=== PATIENT | male | born 1995 | race Caucasian/White ===

== ENCOUNTER 2018-03-26 04:56 | Emergency (ER) | payer MEDICAID, SELFPAY ==
[2018-03-26 04:59] VITALS: BP 150/71; PULSE 104; RESP 18; TEMP 36.7; O2SAT 98
--- NOTE | 2018-03-26 05:15 | DI.RAD_ITS ---
SYMPTOMS/DIAGNOSIS: TRAUMA, TWISTING INJURY FALLING DOWN STAIRS RIGHT KNEE: No fracture or joint effusion is seen. The joint spaces are well maintained. IMPRESSION: Negative right knee.
--- NOTE | 2018-03-26 05:16 | W.ED.GENAD ---
Discharge Plan Disposition Patient Disposition: HOME Condition: Good Discharge Details Chief Complaint: Orthopedic Clinical Impression: Injury of knee, right Primary Care Provider: Sindhu Hebert ED Provider: Hemanth Bell [place] Meds and New Rx's Prescriptions: New ibuprofen 600 mg tablet 600 mg PO QID PRN (Reason: pain) Qty: 20 RF: 0 Discharge Instructions Instructions: Knee Sprain (ED), Knee Immobilizer (ED) Additional Instructions: X-rays are negative for bony injury. Your ligaments appear to be intact on exam but you have a large effusion on the knee. You may have cartilage injury. There may be ligament injury still possible. Wear the knee immobilizer until follow-up with orthopedics. Weight-bear as tolerated. Ice to help with pain. Ibuprofen to help with pain. Return to ED if numbness, weakness, worsening pain. Stand Alone Forms: Work Release Referrals: [facility] [Provider Group] Medical Decision Making Patient with right knee injury that occurred last night. Difficulty ambulating today. Fairly significant right knee effusion present. He does have good range of motion but with pain both active and passive. Ligaments appear to be intact. Anterior and posterior drawer test negative. Neurovascularly intact distally. Patient given Motrin for pain. X-ray of right knee obtained and negative for bony injury. Patient placed in knee immobilizer and made weightbearing as tolerated. He declines crutches. Continue ibuprofen for pain, ice for swelling, referral to orthopedics in 1 week for reevaluation. Work note for limited use of right lower extremity. Imaging Data Radiologic Study: Imaging: X-Ray Radiologist's impression: Patient Name: Young Merino #: [id number]: ER Ordering Provider: : PRE ER Primary Care Provider: Sindhu Hebert NPDate of Exam: 03/26/18ex: M : 1995Age: 22 Exam(s) EXAM: XR Right Knee, 3 Views EXAM DATE/TIME: 03/26/2018 5:31 AM CLINICAL HISTORY: 22 years old, male; Signs and symptoms; Other: Trauma; Additional info: Patient states twisting injury while going up stairs. Pain is all around the knee and radiating down the leg some. He also is having difficulty bending his knee. TECHNIQUE: XR Right knee 3 views. COMPARISON: No relevant prior studies available. FINDINGS: Bones/joints: No fracture or dislocation. Joint spaces unremarkable. Alignment anatomic. Soft tissues: Unremarkable. No foreign body. IMPRESSION: Unremarkable examination right knee Dictated and Authenticated by: Lasha Maria MD. Ordering:MARIXA MILLER MD HPI General Mode of arrival: ambulatory. Date/Time Provider Initiated Documentation: 03/26/18 05:10. Limitations to Documentation: no limitations. Information obtained by: patient. HPI Narrative: Patient here with right knee pain status post slip and twisting last night. Tried to go to work this morning but is having difficulty ambulating. He denies actually striking the knee. Slipped and twisted his knee. Denies injury elsewhere. Pain mostly in the knee somewhat radiating down the back of the calf. Related Data Home Medications Medication Instructions Recorded Confirmed ibuprofen 600 mg PO QID PRN #20 tab 03/26/18 Previous Rx's Medication Instructions Recorded ibuprofen 600 mg PO QID PRN #20 tab 03/26/18 Allergies Allergy/AdvReac Type Severity Reaction Status Date / Time No Known Drug Allergies Allergy Unverified 03/26/18 05:04 General Stated Complaint: Orthopedic TONEY: 4 Review of Systems Constitutional Denies weakness Musculoskeletal Reports arthralgias, Reports joint swelling, Denies numbness and Denies tingling Integumentary/Breasts Denies wounds Neurologic Denies focal weakness, Denies numbness, Denies tingling, Denies paresthesias and Denies weakness [facility] Learning disability Speech impediment Tobacco use disorder Family History Grandfather Essential hypertension Myocardial infarction Mother Substance abuse COPD (chronic obstructive pulmonary disease) Father Substance abuse Sister No problems noted. Sister No problems noted. Brother No problems noted. Family History Grandfather Essential hypertension Myocardial infarction Mother Substance abuse COPD (chronic obstructive pulmonary disease) Father Substance abuse Sister No problems noted. Sister No problems noted. Brother No problems noted. Medical History Learning disability Speech impediment Tobacco use disorder Social History Smoking/Tobacco Use Status: Current every day Social History Smoking/Tobacco Use Status: Current every day Exam Const General: cooperative and comfortable Orientation: alert and oriented x3 Skin General skin exam: no ecchymosis and no erythema Trauma: no lacerations or abrasions Neuro General: alert, oriented x3, no focal motor deficits and CN's II-XI intact bilaterally Sensory Exam: no sensory deficits noted Extrem General: normal exam except as noted Right lower extremity: knee (NVI distally) Details: tenderness, swelling (knee effusion), abnormal ROM (able to fully extend and able to get to 90 flexion but with pain) Details: pain with active ROM during and pain with passive ROM during; able to extend lower leg actively and knee ligament exam normal; no unusual warmth Course Vital Signs Temperature 98.1 F 03/26/18 04:59 Pulse 104 H 03/26/18 04:59 Respiratory Rate 18 03/26/18 04:59 Blood Pressure 150/71 H 03/26/18 04:59 Pulse Oximetry 98 03/26/18 04:59 Temperature 98.1 F 03/26/18 04:59 Temperature Source Skin 03/26/18 04:59 Pulse 104 H 03/26/18 04:59 Respiratory Rate 18 03/26/18 04:59 Respiratory Effort Non-Labored 03/26/18 05:02 Blood Pressure 150/71 H 03/26/18 04:59 Blood Pressure Position Sitting 03/26/18 04:59 Pulse Oximetry 98 03/26/18 04:59 Oxygen Delivery Method Room Air 03/26/18 04:59 Oxygen Flow Rate 0 03/26/18 04:59 Pain Level 6 03/26/18 04:59
[2018-03-26] MEDS: Ibuprofen 600 MG TAB PO (05:19)
--- NOTE | 2018-03-26 05:24 | ED.GENADUL_ITS ---
Discharge Plan Disposition Patient Disposition: HOME Condition: Good Discharge Details Chief Complaint: Orthopedic Clinical Impression: Injury of knee, right Primary Care Provider: Sindhu Hebert ED Provider: Hemanth Bell [place] Meds and New Rx's Prescriptions: New ibuprofen 600 mg tablet 600 mg PO QID PRN (Reason: pain) Qty: 20 RF: 0 Discharge Instructions Instructions: Knee Sprain (ED), Knee Immobilizer (ED) Additional Instructions: X-rays are negative for bony injury. Your ligaments appear to be intact on exam but you have a large effusion on the knee. You may have cartilage injury. There may be ligament injury still possible. Wear the knee immobilizer until follow-up with orthopedics. Weight-bear as tolerated. Ice to help with pain. Ibuprofen to help with pain. Return to ED if numbness, weakness, worsening pain. Stand Alone Forms: Work Release Referrals: [facility] [Provider Group] Medical Decision Making Patient with right knee injury that occurred last night. Difficulty ambulating today. Fairly significant right knee effusion present. He does have good range of motion but with pain both active and passive. Ligaments appear to be intact. Anterior and posterior drawer test negative. Neurovascularly intact distally. Patient given Motrin for pain. X-ray of right knee obtained and negative for bony injury. Patient placed in knee immobilizer and made weightbearing as tolerated. He declines crutches. Continue ibuprofen for pain , ice for swelling, referral to orthopedics in 1 week for reevaluation. Work note for limited use of right lower extremity. Imaging Data Radiologic Study: Imaging: X-Ray Radiologist's impression: Patient Name: Young Merino #: [id number]: ER Ordering Provider: : PRE ER Primary Care Provider: Sindhu Hebert NPDate of Exam: 03/26/18ex: M : 1995Age: 22 Exam(s) EXAM: XR Right Knee, 3 Views EXAM DATE/TIME: 03/26/2018 5:31 AM CLINICAL HISTORY: 22 years old, male; Signs and symptoms; Other: Trauma; Additional info: Patient states twisting injury while going up stairs. Pain is all around the knee and radiating down the leg some. He also is having difficulty bending his knee. TECHNIQUE: XR Right knee 3 views. COMPARISON: No relevant prior studies available. FINDINGS: Bones/joints: No fracture or dislocation. Joint spaces unremarkable. Alignment anatomic. Soft tissues: Unremarkable. No foreign body. IMPRESSION: Unremarkable examination right knee Dictated and Authenticated by: Lasha Maria MD. Ordering:MARIXA MILLER MD HPI General Mode of arrival: ambulatory . Date/Time Provider Initiated Documentation: 03/26/18 05:10 . Limitations to Documentation: no limitations . Information obtained by: patient . HPI Narrative: Patient here with right knee pain status post slip and twisting last night. Tried to go to work this morning but is having difficulty ambulating. He denies actually striking the knee. Slipped and twisted his knee. Denies injury elsewhere. Pain mostly in the knee somewhat radiating down the back of the calf. Related Data Home Medications Medication Instructions Recorded Confirmed ibuprofen 600 mg PO QID PRN #20 tab 03/26/18 Previous Rx's Medication Instructions Recorded ibuprofen 600 mg PO QID PRN #20 tab 03/26/18 Allergies Allergy/AdvReac Type Severity Reaction Status Date / Time No Known Drug Allergies Allergy Unverified 03/26/18 05:04 General Stated Complaint: Orthopedic TONEY: 4 Review of Systems Constitutional Denies weakness Musculoskeletal Reports arthralgias, Reports joint swelling, Denies numbness and Denies tingling Integumentary/Breasts Denies wounds Neurologic Denies focal weakness, Denies numbness, Denies tingling, Denies paresthesias and Denies weakness COUNTS INCLUDE 234 BEDS AT THE [facility] Learning disability Speech impediment Tobacco use disorder Family History Grandfather Essential hypertension Myocardial infarction Mother Substance abuse COPD (chronic obstructive pulmonary disease) Father Substance abuse Sister No problems noted. Sister No problems noted. Brother No problems noted. Family History Grandfather Essential hypertension Myocardial infarction Mother Substance abuse COPD (chronic obstructive pulmonary disease) Father Substance abuse Sister No problems noted. Sister No problems noted. Brother No problems noted. Medical History Learning disability Speech impediment Tobacco use disorder Social History Smoking/Tobacco Use Status: Current every day Social History Smoking/Tobacco Use Status: Current every day Exam Const General: cooperative and comfortable Orientation: alert and oriented x3 Skin General skin exam: no ecchymosis and no erythema Trauma: no lacerations or abrasions Neuro General: alert, oriented x3, no focal motor deficits and CN's II-XI intact bilaterally Sensory Exam: no sensory deficits noted Extrem General: normal exam except as noted Right lower extremity: knee (NVI distally) Details: tenderness, swelling (knee effusion), abnormal ROM (able to fully extend and able to get to 90 flexion but with pain) Details: pain with active ROM during and pain with passive ROM during ; able to extend lower leg actively and knee ligament exam normal; no unusual warmth Course Vital Signs Temperature 98.1 F 03/26/18 04:59 Pulse 104 H 03/26/18 04:59 Respiratory Rate 18 03/26/18 04:59 Blood Pressure 150/71 H 03/26/18 04:59 Pulse Oximetry 98 03/26/18 04:59 Temperature 98.1 F 03/26/18 04:59 Temperature Source Skin 03/26/18 04:59 Pulse 104 H 03/26/18 04:59 Respiratory Rate 18 03/26/18 04:59 Respiratory Effort Non-Labored 03/26/18 05:02 Blood Pressure 150/71 H 03/26/18 04:59 Blood Pressure Position Sitting 03/26/18 04:59 Pulse Oximetry 98 03/26/18 04:59 Oxygen Delivery Method Room Air 03/26/18 04:59 Oxygen Flow Rate 0 03/26/18 04:59 Pain Level 6 03/26/18 04:59
--- NOTE | 2018-03-26 05:42 | DI.VRAD_ITS ---
EXAM: XR Right Knee, 3 Views EXAM DATE/TIME: 03/26/2018 5:31 AM CLINICAL HISTORY: 22 years old, male; Signs and symptoms; Other: Trauma; Additional info: Patient states twisting injury while going up stairs. Pain is all around the knee and radiating down the leg some. He also is having difficulty bending his knee. TECHNIQUE: XR Right knee 3 views. COMPARISON: No relevant prior studies available. FINDINGS: Bones/joints: No fracture or dislocation. Joint spaces unremarkable. Alignment anatomic. Soft tissues: Unremarkable. No foreign body. IMPRESSION: Unremarkable examination right knee Dictated and Authenticated by: Lasha Maria MD. Ordering:MARIXA MILLER MD
== END 2018-03-26 06:03 | disposition home or self-care (01) ==
LOC: ER 06:05
PROVIDERS: Emergency Provider Emergency Medicine
DX: S89.91XA Unspecified injury of right lower leg, initial encounter (principal); M25.461 Effusion, right knee; W00.0XXA Fall on same level due to ice and snow, initial encounter; X50.9XXA Other and unspecified overexertion or strenuous movements or postures, initial encounter
CPT/HCPCS: 29505; 73562; 99283; L1830

== ENCOUNTER 2018-08-18 13:51 | Outpatient (REF) | payer MEDICAID, SELFPAY ==
[2018-08-18 19:55] LABS: Abs Immature Grans 0.02 k/cumm (0.0-0.09); Absolute Basophil Count 0.03 k/cumm (0.0-0.2); Absolute Eosinophil Count 0.06 k/cumm (0.0-0.7); Absolute Lymphocyte Count 2.33 k/cumm (1.2-3.4); Absolute Neutrophil Count 7.35 k/cumm (1.2-6.7); Basophils % 0.3; Eosinophils % 0.6; HCT 49.3 % (40.0-50.0); HGB 16.7 g/dL (13.5-17.5); Immature Grans % 0.2; Lymphocytes % 22.4; Mean Corp. HGB Concentration 33.9 g/dL (32.0-36.0); Mean Corpuscular Hemoglobin 30.5 pg (27.0-33.0); Mean Platelet Volume 10.4 fL (8.0-11.0); Monocytes % 5.8; Neutrophils % 70.7; Platelet Count 246 x1000/uL (130-400); RBC 5.48 m/cumm (4.50-6.00); RBC Distribution Width 14.1 % (11.8-14.1); White Blood Cell Count 10.39 k/cumm (4.4-10.8)
[2018-08-18 20:18] LABS: ALT 19 U/L (12-78); AST 18 U/L (15-37); Albumin 4.4 g/dL (3.4-5.0); Alkaline Phosphatase 75 U/L (46-116); BUN 13 mg/dL (7-18); Bilirubin, Total 1.4 mg/dL (0.2-1.0); CREATININE 0.99 mg/dL (0.70-1.30); Calcium 9.8 mg/dL (8.5-10.1); Chloride 101 mmol/L (98-107); Glucose 91 mg/dL (70-100); Potassium 3.8 mmol/L (3.5-5.1); Sodium 140 mmol/L (136-145); Total Protein 7.8 g/dL (6.4-8.2)
== END 2018-08-18 14:11 ==
LOC: NCHCN 13:51
PROVIDERS: PCP Nurse Practitioner Family; Visit Provider Nurse Practitioner Family
DX: F41.8 Other specified anxiety disorders (principal); F10.10 Alcohol abuse, uncomplicated; M25.569 Pain in unspecified knee
CPT/HCPCS: 80053; 85025

== ENCOUNTER 2018-10-02 16:42 | Outpatient (REF) | payer MEDICAID, SELFPAY | END 2018-10-02 17:02 | LOC: NCHCN 16:42 | PROVIDERS: PCP Nurse Practitioner Family; Visit Provider Nurse Practitioner Family | DX: S91.301A Unspecified open wound, right foot, initial encounter (principal) | CPT/HCPCS: 87070; 87205 ==

== ENCOUNTER 2019-10-08 07:34 | Emergency (ER) | payer MEDICAID, SELFPAY ==
[2019-10-08 07:40] VITALS: BP 124/81; PULSE 87; RESP 15; TEMP 36; O2SAT 99
--- NOTE | 2019-10-08 08:19 | W.ED.GENAD ---
Discharge Plan Disposition Patient Disposition: HOME Condition: Stable Discharge Details Chief Complaint: Nk/Back Pain Clinical Impression: Back muscle spasm Primary Care Provider: Dante Teixeira ED Provider: Yeninfer Raines Home Meds and New Rx's Prescriptions: New cyclobenzaprine 10 mg tablet 10 mg PO TID PRNQty: 7 RF: 0 Continued ibuprofen 600 mg tablet 600 mg PO QID PRN (Reason: pain) Qty: 20 RF: 0 Discharge Instructions Instructions: Muscle Spasm (ED) Additional Instructions: Drink plenty of fluids. Rest activities as tolerated. Avoid stretching or massage for the next few days. Use ibuprofen as discussed with food every 6-8 hours for inflammation. Consider ice or heat to the area as discussed. Use muscle relaxant as prescribed. Do not drive, drink alcohol or use any other sedating medications while taking this medication as this will cause drowsiness. Please use with caution. Return for any worsening, concerns or alarming symptoms sooner if needed. Follow-up with primary care doctor not improving in 1 week. Medical Decision Making This is a 23-year-old patient presenting for complaints after sleeping on his friend's floor after drinking. Patient awoke with discomfort in his back. Denies any injury or trauma. Denies any falls. Patient reports history of back spasm in the past this feels similar. Pain described worse with range of motion of the back, deep breathing. Some relief of pain with massage of the area. Patient denies any radicular symptoms. Denies any paresthesia. No lower extremity complaints. Patient describes back pain in the left subscapular area. No chest pain associated. No difficulty breathing shortness of breath or wheezing. Denies any ill feeling. Vital signs reviewed and are normal. Patient reports pain is well reproducible with range of motion. Physical exam is benign. Likely etiology muscle spasm after night of drinking and sleeping on a hard floor. Patient has no palpable bony pain, is well-appearing. Respiratory effort is easy. Suspect muscle spasm. Patient agrees with plan of care to hydrate, use anti-inflammatory as well as muscle relaxant if needed for severe pain. Patient agrees this plan of care. Patient has taken and tolerated Flexeril in the past for muscle spasm. No evidence of emergent cardiothoracic process. The patient was stable and requested discharge. Prior to discharge, my usual and customary return precautions were reviewed with the patient - this included follow-up instructions and reasons to return to the Emergency Department if conditions worsens, does not improve as expected, or other new concerns arise. HPI General Date/Time Provider Initiated Documentation: 10/08/19 08:06. HPI Narrative: This is a 23-year-old gentleman presenting the emergency room for complaints of back strain and spasm. Patient reports back pain beneath his left posterior shoulder. Patient reports pain began after sleeping at a friend's house, they were drinking alcohol the night before yet denies any fall, injury or trauma however patient slipped on the floor and awoke with discomfort in his back. Patient reports pain with movement, left arm movement, rotation of his trunk as well as deep breathing. Patient denies any difficulty breathing or shortness of breath or wheezing. Patient denies any fevers or chills. No ill feeling whatsoever. Denies headache or dizziness. Patient denies any abdominal pain, nausea, vomiting. Eating and drinking without difficulty. No lower extremity complaints. Patient does mention a previous right knee ACL injury which he never had surgery for which still causes some intermittent pain however he denies any new lower extremity complaints. Denies paresthesia. Urinating without difficulty. Denies rash. Denies bruising. Denies falls. History of back spasm in the past Related Data Home Medications Medication Instructions Recorded Confirmed ibuprofen 600 mg PO QID PRN #20 tab 03/26/18 10/08/19 cyclobenzaprine 10 mg PO TID PRN #7 tab 10/08/19 Previous Rx's Medication Instructions Recorded ibuprofen 600 mg PO QID PRN #20 tab 03/26/18 cyclobenzaprine 10 mg PO TID PRN #7 tab 10/08/19 Allergies Allergy/AdvReac Type Severity Reaction Status Date / Time No Known Drug Allergies Allergy Unverified 10/08/19 07:44 General Stated Complaint: Nk/Back Pain TONEY: 4 Review of Systems All systems reviewed & are unremarkable except as noted in HPI and below [facility] Medical History Learning disability Speech impediment Tobacco use disorder Family History Grandfather Essential hypertension Myocardial infarction Mother Substance abuse Tobacco use disorder Daily marijuana COPD (chronic obstructive pulmonary disease) Father Substance abuse EtOH Sister No problems noted. Sister No problems noted. Brother No problems noted. Social History Smoking/Tobacco Use Status: Current every day Alcohol Intake: current Alcohol Intake frequency: a few times a week Drug use: Daily Substance use type: marijuana Do you feel safe at home: Yes Do you feel safe in your relationship?: Yes Exam Narrative Exam Narrative: CONST: Healthy appearing patient, in no acute distress. Well hydrated. Alert and oriented. HENMT: Head nomocephalic, normal to inspection. Atraumatic. Hearing grossly normal. EYES: General normal appearance. Alignment normal. Eyelids normal. Conjunctiva normal. NECK: Normal visual inspection. FROM. Trachea midline. No Midline tenderness. CHEST: Normal insepection of the chest. RESP: Normal respiratory effort. Speaking full sentences. No cough. No audible wheezing. No retractions. Breath sounds clear, full and equal bilaterally. Single isolated wheeze noted in the posterior upper lung on the left. No increase in respiratory effort. No retractions. CARDIO: No JVD. Regular rate and rhythm. No murmur. MUSCULOSKELETAL: Back: No midline tenderness to the cervical, thoracic or lumbar spine. No evidence of trauma or bruising. Mild relief of pain with palpation of the area of discomfort described which is just inferior to the shoulder blade on the left. No CVA tenderness noted bilaterally. Normal Gait. FROM of all extremities. Strength intact in all extremities. No focal weakness. SKIN: Normal. Dry. No rashes. NEURO: Alert and awake. Speech clear. PSYCH: Normal affect. Cooperative. Course Vital Signs Vital signs: Vital Signs Temperature 36.0 C L 10/08/19 07:40 Pulse 87 10/08/19 07:40 Respiratory Rate 15 10/08/19 07:40 Blood Pressure 124/81 10/08/19 07:40 Pulse Oximetry 99 10/08/19 07:40 Temperature 36.0 C L 10/08/19 07:40 Temperature Source Temporal Artery Scan 10/08/19 07:40 Pulse 87 10/08/19 07:40 Respiratory Rate 15 10/08/19 07:40 Respiratory Effort Non-Labored 10/08/19 07:42 Blood Pressure 124/81 10/08/19 07:40 Blood Pressure Position Sitting 10/08/19 07:40 Pulse Oximetry 99 10/08/19 07:40 Oxygen Delivery Method Room Air 10/08/19 07:40 Oxygen Flow Rate 0 10/08/19 07:40 Pain Level 4 10/08/19 07:44
== END 2019-10-08 08:22 | disposition home or self-care (01) ==
PROVIDERS: Emergency Provider Physician Assistant; PCP Nurse Practitioner Family
DX: M62.830 Muscle spasm of back (principal)
CPT/HCPCS: 99283

== ENCOUNTER 2020-11-08 03:02 | Emergency (ER) | payer MEDICAID, SELFPAY ==
[2020-11-08 03:07] VITALS: BP 147/110; PULSE 72; RESP 20; TEMP 36.4; O2SAT 99
--- NOTE | 2020-11-08 03:15 | W.ED.GENAD ---
Discharge Plan Disposition Patient Disposition: HOME Condition: Good Discharge Details Clinical Impression: Encounter for medical assessment Primary Care Provider: Dante Teixeira ED Provider: Rinku Lan Home Meds and New Rx's Prescriptions: Continued ibuprofen 600 mg tablet 600 mg PO QID PRN (Reason: pain) Qty: 20 RF: 0 cyclobenzaprine 10 mg tablet 10 mg PO TID PRNQty: 7 RF: 0 Discharge Instructions Additional Instructions: Please use your outpatient resources as needed. If you notice any worsening of your symptoms, or any new symptoms such as vomiting, diarrhea, fever, chills, shortness of breath, chest pain, numbness, weakness, or fainting , please return immediately to the emergency department for reevaluation. Please follow up with your primary care provider as soon as possible for reassessment and reevaluation. As always, it was a pleasure participating in your medical care today. Referrals: Dante Teixeira, REPEAT CHIEF [Primary Care Provider] - Medical Decision Making This is a 24-year-old male with a past medical history of learning disability, speech impediment, who presents today for medical evaluation. Patient is normally under a curfew, unfortunately he states that he was in another person's vehicle trying to do his laundry this evening which was a violation of his curfew, police picked up the person that he was in the vehicle with, and when the police were there the patient made passive suicidal statements stating that he was worried he would not get to work on time which is at 5 in the morning. He was worried he would lose his job. Mental health then requested that he come to the ER for a second opinion and medical evaluation for stability. Currently the patient states that he denies any homicidal or suicidal ideations. He states that he was only worried that he would not get to his job this morning and that gave him great concern. He denies any IV or illicit drug use today or yesterday, he does state that he smoked crack cocaine last week, but denies any crack cocaine, alcohol or other drugs tonight or yesterday. Patient regrets his previous statements. No other complaints at this time. Currently he denies auditory or visual hallucinations. He denies homicidal or suicidal ideations. He states that he has not taken any drugs or drink any alcohol today. The patient is able to speak clearly. There is no demonstration of any slurring of speech. There is evidence of clear decision making capacity. Patient is able to ambulate well without any difficulty. There are no signs of ataxia or stumbling motions. Patient is hemodynamically stable, and shows no signs of medical instability. Patient is clinically and medically cleared at this time. No indication for further laboratory work-up or imaging. Discussed the case with mental health, may evaluated the patient over the phone themselves as well second time. They agree on the patient's stability, and he has been cleared for discharge. I have extensively reviewed the treatment plan and discharge instructions with the patient. I have addressed all patient concerns at this time. The patient was made aware of what symptoms to monitor for that would warrant a return to the emergency department. Discussed the plan with the patient, they demonstrate verbal understanding and agreement with our assessment and plan at this time. The documentation in this chart was dictated using [employer] dictation software. Please excuse any dictation errors. HPI General Date/Time Provider Initiated Documentation: 11/08/20 03:04. HPI Narrative: This is a 24-year-old male with a past medical history of learning disability, speech impediment, who presents today for medical evaluation. Patient is normally under a curfew, unfortunately he states that he was in another person's vehicle trying to do his laundry this evening which was a violation of his curfew, police picked up the person that he was in the vehicle with, and when the police were there the patient made passive suicidal statements stating that he was worried he would not get to work on time which is at 5 in the morning. He was worried he would lose his job. Mental health then requested that he come to the ER for a second opinion and medical evaluation for stability. Currently the patient states that he denies any homicidal or suicidal ideations. He states that he was only worried that he would not get to his job this morning and that gave him great concern. He denies any IV or illicit drug use today or yesterday, he does state that he smoked crack cocaine last week, but denies any crack cocaine, alcohol or other drugs tonight or yesterday. Patient regrets his previous statements. No other complaints at this time. Related Data Home Medications Medication Instructions Recorded Confirmed ibuprofen 600 mg PO QID PRN #20 tab 12/05/18 07/20/21 cyclobenzaprine 10 mg PO TID PRN #7 tab 10/08/19 11/08/20 Previous Rx's Medication Instructions Recorded ibuprofen 600 mg PO QID PRN #20 tab 03/26/18 cyclobenzaprine 10 mg PO TID PRN #7 tab 10/08/19 Allergies Allergy/AdvReac Type Severity Reaction Status Date / Time No Known Drug Allergies Allergy Unverified 11/08/20 03:12 General Stated Complaint: PsychEval TONEY: 2 Review of Systems All systems reviewed & are unremarkable except as noted in HPI and below PFSH Medical History Learning disability Speech impediment Tobacco use disorder Family History Grandfather Essential hypertension Myocardial infarction Mother Substance abuse Tobacco use disorder Daily marijuana COPD (chronic obstructive pulmonary disease) Father Substance abuse EtOH Sister No problems noted. Sister No problems noted. Brother No problems noted. Social History Smoking/Tobacco Use Status: Current every day Smoking risk assessment performed?: Yes Alcohol Intake: current Alcohol Intake frequency: a few times a week Drug use: Daily Substance use type: marijuana and crack/cocaine Do you feel safe at home: Yes Do you feel safe in your relationship?: Yes Exam Narrative Exam Narrative: 1.Const: Well-nourished, Well-developed, appearing stated age 2.Eyes: PERRL, no conjunctival injection, and symmetrical lids. 3.ENT: Atraumatic external nose and ears. Moist MM. Neck: Symmetric, trachea midline, No thyromegaly. 4.CVS: +S1/S2, No murmurs or gallops. Peripheral pulses 2+ and equal in all extremities. Brisk capillary refill in all extremities. 5.RESP: Unlabored respiratory effort. Clear to auscultation bilaterally. No wheezes rales or rhonchi 6.GI: Soft, Nontender/Nondistended, No hepatosplenomegaly. No guarding or rebound. 7.MSK: Normocephalic/Atraumatic, Extremities w/o deformity or ttp No cyanosis or clubbing, Normal movement of all extremities 8.Skin: Warm, Dry. No rashes or lesions. 9.Neuro: health information director II-XII grossly intact. Sensation grossly intact, no focal neurologic deficits. 10.Psych: (AAO) x3. Appropriate mood and affect Course Vital Signs Vital signs: Vital Signs Temperature 36.4 C L 11/08/20 03:07 Pulse 72 11/08/20 03:07 Respiratory Rate 20 11/08/20 03:07 Blood Pressure 147/110 H 11/08/20 03:07 Pulse Oximetry 99 11/08/20 03:07 Temperature 36.4 C L 11/08/20 03:07 Temperature Source Temporal Artery Scan 11/08/20 03:07 Pulse 72 11/08/20 03:07 Respiratory Rate 20 11/08/20 03:07 Respiratory Effort Non-Labored 11/08/20 03:12 Blood Pressure 147/110 H 11/08/20 03:07 Blood Pressure Position Sitting 11/08/20 03:07 Pulse Oximetry 99 11/08/20 03:07 Oxygen Delivery Method Room Air 11/08/20 03:07 Oxygen Flow Rate 0 11/08/20 03:07 Pain Level 0 11/08/20 03:07
== END 2020-11-08 03:27 | disposition home or self-care (01) ==
LOC: ER 03:30
PROVIDERS: Emergency Provider Student in an Organized Health Care Education/Training Program; PCP Nurse Practitioner Family
DX: Z04.89 Encounter for examination and observation for other specified reasons (principal)
CPT/HCPCS: 99285; 99283

== ENCOUNTER 2024-12-24 21:54 | Emergency (ER) | payer MEDICAID, SELFPAY ==
[2024-12-24 21:52] VITALS: BP 145/80; PULSE 71; RESP 18; TEMP 36.8; O2SAT 96
--- NOTE | 2024-12-24 22:10 | ED.GENADUL_ITS ---
Discharge Plan Disposition Patient Disposition: Eloped Discharge Details Clinical Impression: Encounter for medical assessment Primary Care Provider: Dante Koenig ED Provider: Rinku Lan Home Meds and New Rx's Prescriptions: No Action ibuprofen 600 mg tablet 600 mg PO QID PRN (Reason: pain) Qty: 20 0RF cyclobenzaprine 10 mg tablet 10 mg PO TID PRNQty: 7 0RF HPI General Date/Time Provider Initiated Documentation: 12/24/24 22:07 . Related Data Home Medications ?Medication ?Instructions ?Recorded ?Confirmed ibuprofen 600 mg tablet 600 mg PO QID PRN pain #20 t abs 03/26/18 12/24/24 Held on 12/24/24. Instructions: Pt Stopped/Never Started cyclobenzaprine 10 mg tablet 10 mg PO TID PRN #7 tabs 10/08/19 12/24/24 Held on 12/24/24. Instructions: Pt Stopped/Never Started Previous Rx's ?Medication ?Instructions ?Recorded ibuprofen 600 mg tablet 600 mg PO QID PRN pain #20 t abs 03/26/18 Held on 12/24/24. Instructions: Pt Stopped/Never Started cyclobenzaprine 10 mg tablet 10 mg PO TID PRN #7 tabs 10/08/19 Held on 12/24/24. Instructions: Pt Stopped/Never Started Allergies Allergy/AdvReac Type Severity Reaction Status Date / Time No Known Drug Allergies Allergy Unverified 11/08/20 03:12 General Stated Complaint: Dizzy/Sync TONEY: 4 Course Vital Signs Vital signs: Vital Signs Temperature 36.8 C 12/24/24 21:52 Pulse 71 12/24/24 21:52 Respiratory Rate 18 12/24/24 21:52 Blood Pressure 145/80 H 12/24/24 21:52 Pulse Oximetry 96 12/24/24 21:52 Temperature 36.8 C 12/24/24 21:52 Pulse 71 12/24/24 21:52 Respiratory Rate 18 12/24/24 21:52 Blood Pressure 145/80 H 12/24/24 21:52 Pulse Oximetry 96 12/24/24 21:52 Oxygen Delivery Method Room Air 12/24/24 21:52 Oxygen Flow Rate 0 12/24/24 21:52 Pain Level 0 12/24/24 21:52 Medical Decision Making Patient was brought in by EMS. Patient immediately eloped from the department upon arrival. I did not have an opportunity to see the patient before he eloped. [facility] All Active Problems (Updated 12/24/24 @ 22:12 by Rinku Lan DO) Encounter for medical assessment (Acute) Tobacco use disorder (Acute) Speech impediment (Acute) Marijuana abuse (Acute) Learning disability (Acute) Alcoholism (Acute) Acne vulgaris (Acute) Medical History (Updated 12/24/24 @ 22:12 by Rinku Lan DO) Speech impediment Tobacco use disorder Learning disability Family History Grandfather Essential hypertension Myocardial infarction Mother Substance abuse Tobacco use disorder Daily marijuana COPD (chronic obstructive pulmonary disease) Father Substance abuse EtOH Sister No problems noted. Sister No problems noted. Brother No problems noted. Social History Smoking/Tobacco Use Status: Current every day Smoking risk assessment performed?: Yes Alcohol Intake: current Alcohol Intake frequency: a few times a week Drug use: Daily Substance use type: marijuana and crack/cocaine Do you feel safe at home: Yes Do you feel safe in your relationship?: Yes
--- NOTE | 2024-12-24 22:38 | ED.GENADUL_ITS ---
Discharge Plan Disposition Patient Disposition: Home Condition: Good Discharge Details Clinical Impression: Encounter for medical assessment Primary Care Provider: Unknown,Unknown ED Provider: Rinku Lan Home Meds and New Rx's Prescriptions: No Action ibuprofen 600 mg tablet 600 mg PO QID PRN (Reason: pain) Qty: 20 0RF cyclobenzaprine 10 mg tablet 10 mg PO TID PRNQty: 7 0RF Discharge Instructions Additional Instructions: It would be my recommendations that you avoid cocaine and fentanyl. These are harmful drugs and can cause significant long-term problems. At this time you demonstrate no evidence of significant medical instability requiring further management or diagnostics. If you notice any worsening of your symptoms, or any new symptoms such as vomiting, diarrhea, fever, chills, shortness of breath, chest pain, numbness, weakness, or fainting , please return immediately to the emergency department for reevaluation. Please follow up with your primary care provider as soon as possible for reassessment and reevaluation. As always, it was a pleasure participating in your medical care today. Referrals: Lluvia POLANCO,YIFAN Howell [NURSE PRACTITIONER, Medicine] [facility] General Date/Time Provider Initiated Documentation: 12/24/24 22:07 . HPI Narrative: This is a 29-year-old male with a past medical history of learning disability, speech impediment, chronic cocaine use, who lives under the care and supervision of supportive staff, who presents today for evaluation of medical clearance. Patient today states that he regularly and daily smokes crack, however tonight he took some fentanyl. He went back to his care facility, and per the staff there he was notably difficult to arouse and obtunded for short period of time. He came to without any Narcan. Patient stated that he did not want to go to the ER, but was then brought by EMS for further evaluation. On patient's initial arrival here he eloped,(most likely to go smoke) but then came back later for assessment. Patient has no complaints at this time. He denies any headache, chest pain, shortness of breath, numbness, tingling or weakness. He denies taking any other drugs. He does not want any resources to help quit. Related Data Home Medications ?Medication ?Instructions ?Recorded ?Confirmed ibuprofen 600 mg tablet 600 mg PO QID PRN pain #20 t abs 03/26/18 12/24/24 Held on 12/24/24. Instructions: Pt Stopped/Never Started cyclobenzaprine 10 mg tablet 10 mg PO TID PRN #7 tabs 10/08/19 12/24/24 Held on 12/24/24. Instructions: Pt Stopped/Never Started Previous Rx's ?Medication ?Instructions ?Recorded ibuprofen 600 mg tablet 600 mg PO QID PRN pain #20 t abs 03/26/18 Held on 12/24/24. Instructions: Pt Stopped/Never Started cyclobenzaprine 10 mg tablet 10 mg PO TID PRN #7 tabs 10/08/19 Held on 12/24/24. Instructions: Pt Stopped/Never Started Allergies Allergy/AdvReac Type Severity Reaction Status Date / Time No Known Drug Allergies Allergy Unverified 11/08/20 03:12 General Stated Complaint: Dizzy/Sync TONEY: 4 Exam Narrative Exam Narrative: 1.Const: Well-nourished, Well-developed, appearing stated age 2.Eyes: PERRL, no conjunctival injection, and symmetrical lids. 3.ENT: Atraumatic external nose and ears. Moist MM. Neck: Symmetric, trachea midline, No thyromegaly. 4.CVS: +S1/S2, Peripheral pulses 2+ and equal in all extremities. Brisk capillary refill in all extremities. 5.RESP: Unlabored respiratory effort. Clear to auscultation bilaterally. No wheezes rales or rhonchi 6.GI: Soft, Nontender/Nondistended, No hepatosplenomegaly. No guarding or rebound. 7.MSK: Normocephalic/Atraumatic, Extremities w/o deformity or ttp No cyanosis or clubbing, Normal movement of all extremities 8.Skin: Warm, Dry. No rashes or lesions. 9.Neuro: laboratory technology teacher II-XII grossly intact. Sensation grossly intact, no focal neur ologic deficits. 10.Psych: (AAO) x3. Appropriate mood and affect Course Vital Signs Vital signs: Vital Signs Temperature 36.8 C 12/24/24 21:52 Pulse 71 12/24/24 21:52 Respiratory Rate 18 12/24/24 21:52 Blood Pressure 145/80 H 12/24/24 21:52 Pulse Oximetry 96 12/24/24 21:52 Temperature 36.8 C 12/24/24 21:52 Pulse 71 12/24/24 21:52 Respiratory Rate 18 12/24/24 21:52 Blood Pressure 145/80 H 12/24/24 21:52 Pulse Oximetry 96 12/24/24 21:52 Oxygen Delivery Method Room Air 12/24/24 21:52 Oxygen Flow Rate 0 12/24/24 21:52 Pain Level 0 12/24/24 21:52 Medical Decision Making This is a 29-year-old male with a past medical history of learning disability, speech impediment, chronic cocaine use, who lives under the care and supervision of supportive staff, who presents today for evaluation of medical clearance. Patient today states that he regularly and daily smokes crack, however tonight he took some fentanyl. He went back to his care facility, and per the staff there he was notably difficult to arouse and obtunded for short period of time. He came to without any Narcan. Patient stated that he did not want to go to the ER, but was then brought by EMS for further evaluation. On patient's initial arrival here he eloped,(most likely to go smoke) but then came back later for assessment. Patient has no complaints at this time. He denies any headache, chest pain, shortness of breath, numbness, tingling or weakness. He denies taking any other drugs. He does not want any resources to help quit. Exam demonstrates well-appearing male, no acute distress, vital signs stable, no tachycardia, severe hypertension, hypoxemia or other abnormality. Neurologic assessment is normal with no deficits. Patient is medically stable at this time. He did not receive Narcan, shows no signs of reduced respiratory effort or signs of overdose. Patient is stable for discharge. He has been given a phone will be calling his mother to be picked up. No other complaints at this time. No other modifying factors. [facility] All Active Problems (Updated 12/24/24 @ 22:12 by Rinku Lan DO) Encounter for medical assessment (Acute) Tobacco use disorder (Acute) Speech impediment (Acute) Marijuana abuse (Acute) Learning disability (Acute) Alcoholism (Acute) Acne vulgaris (Acute) Medical History (Updated 12/24/24 @ 22:12 by Rinku Lan DO) Speech impediment Tobacco use disorder Learning disability Family History Grandfather Essential hypertension Myocardial infarction Mother Substance abuse Tobacco use disorder Daily marijuana COPD (chronic obstructive pulmonary disease) Father Substance abuse EtOH Sister No problems noted. Sister No problems noted. Brother No problems noted. Social History Smoking/Tobacco Use Status: Current every day Smoking risk assessment performed?: Yes Alcohol Intake: current Alcohol Intake frequency: a few times a week Drug use: Daily Substance use type: marijuana and crack/cocaine Do you feel safe at home: Yes Do you feel safe in your relationship?: Yes
== END 2024-12-24 22:53 | disposition home or self-care (01) ==
PROVIDERS: Emergency Provider Student in an Organized Health Care Education/Training Program
DX: Z71.1 Person with feared health complaint in whom no diagnosis is made (principal)
CPT/HCPCS: 99281; 99282

== ENCOUNTER 2025-01-15 08:43 | Observation (INO) | payer OTHER, SELFPAY ==
[2025-01-15 08:47] VITALS: BP 126/81; PULSE 79; RESP 14; TEMP 38; O2SAT 98
--- NOTE | 2025-01-15 09:00 | DI.CT_ITS ---
Exam(s) CT FACIAL W EXAM: CT FACIAL W CLINICAL HISTORY: L up lip/cheek swelling/pain concern for abscess. TECHNIQUE: Imaging Protocol: Axial computed tomography images with coronal and sagittal reformatted images were created and reviewed CONTRAST MATERIAL: Intravenous: Omnipaque 350 Contrast volume:100 ml contrast route:IV - COMPARISON: No exams were available for comparison FINDINGS: Facial Bones: No fracture is noted in the facial bones. Sinuses and Mastoids: Unremarkable. Globes, extraocular muscles, optic nerves and retrobulbar fat: Normal. Upper aerodigestive tract: Normal. Mandible and bilateral temporomandibular joints: Periapical lucency noted at the roots of the right 2nd mandibular molar tooth. Soft tissues: Severe left sided facial swelling extending from below the left orbit down through the level of the left mandible. Three small discrete ring- enhancing lesions are seen in the left side of the face consistent with small abscesses. Two measure less than a centimeter in size. The larger measures roughly 1 x 1 x 2 cm. IMPRESSION: Severe right-sided facial swelling with 3 small abscess collections. No evidence of osteomyelitis. RADIATION DOSE DELIVERED: 167.01mGy.cm Total DLP DATA REPOSITORY: All CT scans at this facility are submitted to the National Radiology Data Registry (NRDR) Dose Index Registry (DIR) with the [employer] ([employer]). RADIATION OPTIMIZATION: All CT scans at this facility use at least one of these dose optimization techniques: automated exposure control; mA and/or kV adjustment per patient size (includes targeted exams where dose is matched to clinical indication); or iterative reconstruction.
--- NOTE | 2025-01-15 09:15 | W.ED.GENAD ---
Discharge Plan Disposition Patient Disposition: Admit to [facility] Discharge Details Clinical Impression: Cellulitis of face Primary Care Provider: Unknown,Unknown ED Provider: Maicol Moe Home Meds and New Rx's Prescriptions: No Action ibuprofen 600 mg tablet 600 mg PO QID PRN (Reason: pain) Qty: 20 0RF HPI General Date/Time Provider Initiated Documentation: 01/15/25 08:48. HPI Narrative: MDM/Narrative: 29-year-old male presents for left facial swelling, currently incarcerated and was started on p.o. Bactrim and cephalexin yesterday with worsening symptoms. Sands notable for fever with associated left upper lip and cheek swelling concern for possible facial abscess. Will obtain screening labs including blood cultures, and imaging of the face with CT to rule out abscess. Given outpatient antibiotic failure, will likely recommend admission for this patient for further management. ED course: 10:30 AM Results reviewed, notable for leukocytosis as well as rim-enhancing abscess in the left cheek on CT with other likely subcentimeter abscesses developing. Case discussed with Dr. Ni ENT at [facility] who recommends that patient be admitted for antibiotics and would treat with steroids. States that patient would likely improve or require further ENT evaluation after the weekend as he does not see emergent transfer indication at this time. Will discussed with Dr. Krishna hospitalist to determine if patient is suitable for inpatient admission here or if he will require transfer to ENT capable facility. Patient reated with Solu-Medrol 125 mg IV. 12:36 PM Case discussed with [facility] ENT Dr. Jasmin Chavez, who has reviewed the films and patient's history does not believe that he needs any urgent/emergent ENT procedure as she does not believe these abscesses would be drainable at this time. She recommends a dose of steroids, agrees with IV vancomycin and Unasyn, and to reassess patient for response to therapy. If no improvement she would recommend reimaging within 2 to 3 days. She also has very low concern for possible worsening airway involvement given this is an infection in the superficial cutaneous tissues of the left cheek. Case discussed with Dr. Krishna (hospitalist), is agreeable to plan for admission. Disposition: Admission Clinical impression: Facial cellulitis HPI: 29-year-old male with no significant past medical history, he is currently incarcerated presents for evaluation of left facial pain and swelling. Patient states that he had some minimal swelling of the left upper lip/cheek which he thought was a pimple and attempted to squeeze it 2 days ago, he then began to get swelling, he was started on p.o. Bactrim and Keflex while at detention yesterday. This morning he notes significant worsening of pain and swelling, and was found to be febrile here in the triage. He denies any other new or worsening symptoms. ROS: Negative besides as mentioned above Exam: Gen: A&O NAD HEENT: NCAT, EOMI, not icteric. External ears normal. No rhinorrhea. Moist mucous membranes. There is significant swelling of the left upper lip extending to the left cheek, no palpable lymphadenopathy, no associated gingival swelling or dental tenderness to percussion, floor of mouth is normal, no trismus, tolerating secretions, no stridor Neck: Supple, full range of motion, no observable masses, No meningeal sign. Lungs: No Respiratory distress. CV: RRR, no edema. Abdomen: Soft, nondistended, No rebound tenderness. MSK: No joint swelling, no redness. Skin: No rashes, petechiae, lesions. Normal color per patient. Neuro: Normal Gait, Grossly intact. Psych: Appropriate for situation. Labs: 01/15/25 09:35 Blood Blood Culture - Pending 01/15/25 09:20 Blood Blood Culture - Pending Laboratory Tests Range/Units 01/15/25 09:20 WBC (4.4-10.8) 10^3/uL 11.45 H RBC (4.36-5.78) 10^6/uL 5.27 Hgb (13.5-17.5) g/dL 15.3 Hct (40.0-50.0) % 45.8 MCV (80-95) fL 87 MCH (27.0-33.0) pg 29.0 MCHC (32.0-36.0) % 33.4 RDW (11.8-14.1) % 12.3 Plt Count (130-400) 10^3/uL 174 MPV (8.0-11.0) fL 9.6 Immature Gran % % 0.3 Neutrophils % % 80.6 Lymphocytes % % 11.3 Monocytes % % 6.1 Eosinophils % % 1.0 Basophils % % 0.7 Nucleated RBC % (0.0-0.3) % 0.0 Absolute Neutrophils (1.2-6.7) 10^3/uL 9.23 H Absolute Lymphocytes (1.2-3.4) 10^3/uL 1.29 Absolute Monocytes (0.1-0.8) 10^3/uL 0.70 Absolute Eosinophils (0.0-0.7) 10^3/uL 0.11 Absolute Basophils (0.0-0.2) 10^3/uL 0.08 VBG Lactate (<or=2.0) mmol/L 0.7 Sodium (136-145) mmol/L 140 Potassium (3.5-5.1) mmol/L 3.7 Chloride (98-107) mmol/L 101 Carbon Dioxide (21.0-32.0) mmol/L 31.2 Anion Gap (3-11) mmol/L 7.8 BUN (7-18) mg/dL 11 Creatinine (0.70-1.30) mg/dL 0.8 Est GFR (CKD-EPI 2020) (mL/min/1.73m2) 122.10 Glucose (74-106) mg/dL 103 Calcium (8.5-10.1) mg/dL 9.1 Total Bilirubin (0.2-1.0) mg/dL 1.2 H AST (15-37) U/L 21 ALT (16-63) U/L 20 Alkaline Phosphatase (46-116) U/L 78 Total Protein (6.4-8.2) g/dL 7.5 Albumin (3.4-5.0) g/dL 4.0 Radiology: Exam(s) CT FACIAL W EXAM: CT FACIAL W CLINICAL HISTORY: L up lip/cheek swelling/pain concern for abscess. TECHNIQUE: Imaging Protocol: Axial computed tomography images with coronal and sagittal reformatted images were created and reviewed CONTRAST MATERIAL: Intravenous: Omnipaque 350 Contrast volume:100 ml contrast route:IV - COMPARISON: No exams were available for comparison FINDINGS: Facial Bones: No fracture is noted in the facial bones. Sinuses and Mastoids: Unremarkable. Globes, extraocular muscles, optic nerves and retrobulbar fat: Normal. Upper aerodigestive tract: Normal. Mandible and bilateral temporomandibular joints: Periapical lucency noted at the roots of the right 2nd mandibular molar tooth. Soft tissues: Severe left sided facial swelling extending from below the left orbit down through the level of the left mandible. Three small discrete ring-enhancing lesions are seen in the left side of the face consistent with small abscesses. Two measure less than a centimeter in size. The larger measures roughly 1 x 1 x 2 cm. IMPRESSION: Severe right-sided facial swelling with 3 small abscess collections. No evidence of osteomyelitis. RADIATION DOSE DELIVERED: 167.01mGy.cm Total DLP DATA REPOSITORY: All CT scans at this facility are submitted to the National Radiology Data Registry (NRDR) Dose Index Registry (DIR) with the [employer] (ACR). RADIATION OPTIMIZATION: All CT scans at this facility use at least one of these dose optimization techniques: automated exposure control; mA and/or kV adjustment per patient size (includes targeted exams where dose is matched to clinical indication); or iterative reconstruction. Related Data Home Medications ?Medication ?Instructions ?Recorded ?Confirmed ibuprofen 600 mg tablet 600 mg PO QID PRN pain #20 tabs 03/26/18 01/15/25 Previous Rx's ?Medication ?Instructions ?Recorded ibuprofen 600 mg tablet 600 mg PO QID PRN pain #20 tabs 03/26/18 Allergies Allergy/AdvReac Type Severity Reaction Status Date / Time No Known Drug Allergies Allergy Unknown Other (See Unverified 01/15/25 08:55 Comment) General Stated Complaint: Cellulitis TONEY: 3 Course Vital Signs Vital signs: Vital Signs Temperature 38 C H 01/15/25 08:47 Pulse 79 01/15/25 08:47 Respiratory Rate 14 01/15/25 08:47 Blood Pressure 126/81 01/15/25 08:47 Pulse Oximetry 98 01/15/25 08:47 Temperature 38 C H 01/15/25 08:47 Temperature Source Temporal Artery Scan 01/15/25 08:47 Pulse 79 01/15/25 08:47 Respiratory Rate 14 01/15/25 08:47 Blood Pressure 126/81 01/15/25 08:47 Blood Pressure Position Sitting 01/15/25 08:47 Pulse Oximetry 98 01/15/25 08:47 Oxygen Delivery Method Room Air 01/15/25 08:47 Oxygen Flow Rate 0 01/15/25 08:47 Pain Level 7 01/15/25 08:47 Comment 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 All Active Problems (Updated 01/15/25 @ 12:39 by Maicol Moe MD) Cellulitis of face (Acute) Encounter for medical assessment (Acute) Tobacco use disorder (Acute) Speech impediment (Acute) Marijuana abuse (Acute) Learning disability (Acute) Alcoholism (Acute) Acne vulgaris (Acute) Medical History (Updated 01/15/25 @ 12:39 by Maicol Moe MD) Speech impediment Tobacco use disorder Learning disability Family History Grandfather Essential hypertension Myocardial infarction Mother Substance abuse Tobacco use disorder Daily marijuana COPD (chronic obstructive pulmonary disease) Father Substance abuse EtOH Sister No problems noted. Sister No problems noted. Brother No problems noted. Social History Smoking/Tobacco Use Status: Current every day Smoking risk assessment performed?: Yes Alcohol Intake: current Alcohol Intake frequency: a few times a week Drug use: Daily Substance use type: marijuana and crack/cocaine Housing: other Do you feel safe at home: Yes Do you feel safe in your relationship?: Yes
[2025-01-15 09:34] LABS: Abs Immature Grans 0.04 10^3/uL (0.0-0.06); HCT 45.8 % (40.0-50.0); HGB 15.3 g/dL (13.5-17.5); Immature Grans % 0.3 %; MCH 29.0 pg (27.0-33.0); MCHC 33.4 % (32.0-36.0); MCV 87 fL (80-95); MPV 9.6 fL (8.0-11.0); Platelet Count 174 10^3/uL (130-400); RBC 5.27 10^6/uL (4.36-5.78); RDW 12.3 % (11.8-14.1); RDW-SD 39.7 fL; WBC 11.45 10^3/uL (4.4-10.8)
[2025-01-15] MEDS: Normal Saline 1,000 ML 1000 ML IV (09:36)
[2025-01-15] MEDS: Ketorolac 15 MG/ML VIAL IVP (09:36)
[2025-01-15] MEDS: ACETAMINOPHEN 1,000 MG/100 ML BAG 400 MG IVPB (09:36)
[2025-01-15] MEDS: AMPICILLIN/SULBACTAM 3 GM in Normal Saline 100 ML IVPB ×3 (09:41→21:26)
[2025-01-15 09:55] LABS: ALT 20 U/L (16-63); AST 21 U/L (15-37); Albumin 4.0 g/dL (3.4-5.0); Alkaline Phosphatase 78 U/L (46-116); Anion Gap 7.8 mmol/L (3-11); BUN 11 mg/dL (7-18); Bilirubin, Total 1.2 mg/dL (0.2-1.0); CO2 31.2 mmol/L (21.0-32.0); Calcium 9.1 mg/dL (8.5-10.1); Chloride 101 mmol/L (98-107); Estimated GFR 122.10 (mL/min/1.73m2); Glucose 103 mg/dL (74-106); Potassium 3.7 mmol/L (3.5-5.1); Sodium 140 mmol/L (136-145); Total Protein 7.5 g/dL (6.4-8.2)
[2025-01-15] MEDS: Omnipaque 350 MG/ML 500 ML BTL-Imaging package IJ (10:06)
[2025-01-15] MEDS: Normal Saline - Diluent 50 ML VIAL IJ (10:06)
[2025-01-15] MEDS: VANCOMYCIN 1,250 MG in Normal Saline 250 ML 166.6666 MG IVPB (10:52)
[2025-01-15] MEDS: methylPREDNISolone SUCC 125 MG VIAL IVP (10:59)
--- NOTE | 2025-01-15 12:52 | HPE_ITS ---
Date of service: 01/15/25 Time of Service: 12:52 Assessment and Plan Assessment and plan (1) Cellulitis of face: Status: Acute Assessment and plan: As per CT - early abscess formation Not meeting sepsis criteria Will continue Unasyn and vancomycin ongoing steroids PRN ketorolac and APAP for pain Skin culture labs in AM (2) Tobacco use disorder: Status: Acute Assessment and plan: PRN NRT (3) Speech impediment: Status: Acute Assessment and plan: History of : Speech remains in a staccato pattern but clear (4) Marijuana abuse: Status: Acute Assessment and plan: in senior care X2 weeks - was on fentanyl ( smoking not IV) prior - now on suboxone as per self-report- verificationin progress (5) Opioid dependence: Status: Acute Assessment and plan: As above (6) Alcoholism: Status: Acute Assessment and plan: History of drinking and as per point 4 (7) On deep vein thrombosis (DVT) prophylaxis: Status: Acute Assessment and plan: On LMWH Discussed with Dr. Krishna History of Present Illness History of Present Illness Chief Complaint: face swelling Narrative: This is a 29-year-old male with a past medical history of learning disability, speech impediment, chronic cocaine use, who lives under the care and supervision of supportive staff, who presents today for evaluation left facial swelling on oral Bactrim and cephalexin as of yesterday while incarcerated with worsening symptoms. In the ED, the patient was febrile, normotensive, blood work showed WBC at 11.[address]. CT imaging showed severe left sided facial swelling extending from below the left orbit down through the level of the left mandible. Three small discrete ring-enhancing lesions are seen in the left side of the face consistent with small abscesses. Two measure less than a centimeter in size. The larger measures roughly 1 x 1 [address] Ni ENT at [facility] recommended admission and treatment with antibiotics and steroids. [facility] ENT Dr. Jasmin Chavez, who has reviewed the films and patient's history does not believe that he needs any urgent/emergent ENT procedure as she does not believe these abscesses would be drainable at this time with recommendation for steroids dosing and agrees with IV vancomycin and Unasyn, reassessment patient for response to therapy and re- imaging in 2-3 days if no improvement. Full code confirmed. Reporting lesion pimple-like d/t ingrown hair starting 2 days prior and worsening as patient tried to open it with fingers. The patient reports pain 4-5/10 and denies chills,headache, dizziness, nausea, vomiting, diarrhea, constipation or dysuria. Review of Systems All systems reviewed & are unremarkable except as noted in HPI and below PFSH All Active Problems (Updated 01/15/25 @ 15:04 by Melany Julio APRN) On deep vein thrombosis (DVT) prophylaxis (Acute) Opioid dependence (Acute) Cellulitis of face (Acute) Encounter for medical assessment (Acute) Tobacco use disorder (Acute) Speech impediment (Acute) Marijuana abuse (Acute) Learning disability (Acute) Alcoholism (Acute) Acne vulgaris (Acute) Medical History (Updated 01/15/25 @ 15:04 by Melany Julio APRN) Speech impediment Tobacco use disorder Learning disability Family History Grandfather Essential hypertension Myocardial infarction Mother Substance abuse Tobacco use disorder Daily marijuana COPD (chronic obstructive pulmonary disease) Father Substance abuse EtOH Sister No problems noted. Sister No problems noted. Brother No problems noted. Social History Smoking/Tobacco Use Status: Current every day Smoking risk assessment performed?: Yes Alcohol Intake: current Alcohol Intake frequency: a few times a week Drug use: Daily Substance use type: marijuana and crack/cocaine Housing: other Do you feel safe at home: Yes Do you feel safe in your relationship?: Yes Meds Allergies and Home Medications Allergies Allergy/AdvReac Type Severity Reaction Status Date / Time No Known Drug Allergies Allergy Unknown Other (See Unverified 01/15/25 08:55 Comment) Home Medications ?Medication ?Instructions ?Recorded ?Confirmed ?Type ibuprofen 600 mg tablet 600 mg PO QID PRN pain #20 t abs 03/26/18 01/15/25 Rx Exam Narrative Exam Narrative: Alert and oriented X4, no acute distress, head is normocephallic, no adenopathy, no neck swelling , normal eye ROM , mallampati III, no mandibular restriction in ROM , left face swelling, redness- increased erythema to left lip corner, no drainage , no opened lesion, laryngeal wheezing, swallow intact, clear lungs, S1, S2, no murmur, abdomen is non-distended, soft, non-tender, no CVA tenderness Results Labs 01/15/25 09:20 01/15/25 09:20 Labs: Laboratory Results - last 24 hr 01/15/25 09:20 WBC 11.45 H RBC 5.27 Hgb 15.3 Hct 45.8 MCV 87 MCH 29.0 MCHC 33.4 RDW 12.3 Plt Count 174 MPV 9.6 Immature Gran % 0.3 Neutrophils % 80.6 Lymphocytes % 11.3 Monocytes % 6.1 Eosinophils % 1.0 Basophils % 0.7 Nucleated RBC % 0.0 Absolute Neutrophils 9.23 H Absolute Lymphocytes 1.29 Absolute Monocytes 0.70 Absolute Eosinophils 0.11 Absolute Basophils 0.08 VBG Lactate 0.7 Sodium 140 Potassium 3.7 Chloride 101 Carbon Dioxide 31.2 Anion Gap 7.8 BUN 11 Creatinine 0.8 Est GFR (CKD-EPI 2020) 122.10 Glucose 103 Calcium 9.1 Total Bilirubin 1.2 H AST 21 ALT 20 Alkaline Phosphatase 78 Total Protein 7.5 Albumin 4.0 Last Vital Signs Temp 38 C H 01/15/25 08:47 Pulse 79 01/15/25 08:47 Resp 14 01/15/25 08:47 BP 126/81 01/15/25 08:47 Pulse Ox 98 01/15/25 08:47 Time Spent Time spent with Patient: >75 minutes Time was spent: preparing to see the patient(eg.review tests), obtaining and/or reviewing separately otained hiistory, ordering medications,tests, procedures, referring, communicating with other health healthcare science specialist, indepentently interpreting results, counseling the patient, care coordination and other
[2025-01-15 13:45] VITALS: BP 127/110; PULSE 85; RESP 16; TEMP 37.6; O2SAT 93
--- NOTE | 2025-01-15 13:53 | W.PC.ACHO ---
Registration Status: ADM XAVI Primary Language: Preferred Language: French ED Information & Data Chief Complaint Cellulitis 01/15/25 09:17 Triage Note 2 days ago pt states he was 01/15/25 08:47 picking at a pimple or ingrown hair on left side of his face. put on Abx's for swelling. got a bit better but worse again this morning after picking at it again. fever of 100f. significant swelling causing left eye to ache. Medical / Surgical History (Last Reviewed 11/08/20 @ 03:24 by Rinku Lan DO) Speech impediment Tobacco use disorder Learning disability Most Recent Vital Signs Temperature 37.6 C H 01/15/25 13:45 Temperature Source Temporal Artery Scan 01/15/25 08:47 Pulse 85 01/15/25 13:45 Respiratory Rate 16 01/15/25 13:45 Respiratory Effort Normal 01/15/25 13:45 Respiratory Depth Normal 01/15/25 13:45 Respiratory Pattern Normal 01/15/25 13:45 Blood Pressure 127/110 H 01/15/25 13:45 Blood Pressure Position Sitting 01/15/25 08:47 Pulse Oximetry 93 01/15/25 13:45 Oxygen Delivery Method Room Air 01/15/25 13:45 Oxygen Flow Rate 0 01/15/25 13:45 Pain Level 7 01/15/25 08:47 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/15/25 08:47 Allergies No Known Drug Allergies Allergy (Unknown, Unverified 01/15/25 08:55) Other (See Comment) IV IV Catheter Type [Right Saline Lock Antecubital] IV Catheter Gauge [Right 20 Antecubital] Diet Orders Category Date Time Status Regular/Normal [DIET] Nutrition 01/15/25 Dinner Active Diagnostics 01/15/25 Range/Units 09:20 WBC 11.45 H (4.4-10.8) 10^3/uL RBC 5.27 (4.36-5.78) 10^6/uL Hgb 15.3 (13.5-17.5) g/dL Hct 45.8 (40.0-50.0) % MCV 87 (80-95) fL MCH 29.0 (27.0-33.0) pg MCHC 33.4 (32.0-36.0) % RDW 12.3 (11.8-14.1) % Plt Count 174 (130-400) 10^3/uL MPV 9.6 (8.0-11.0) fL Immature Gran % 0.3 % Neutrophils % 80.6 % Lymphocytes % 11.3 % Monocytes % 6.1 % Eosinophils % 1.0 % Basophils % 0.7 % Nucleated RBC % 0.0 (0.0-0.3) % Absolute Neutrophils 9.23 H (1.2-6.7) 10^3/uL Absolute Lymphocytes 1.29 (1.2-3.4) 10^3/uL Absolute Monocytes 0.70 (0.1-0.8) 10^3/uL Absolute Eosinophils 0.11 (0.0-0.7) 10^3/uL Absolute Basophils 0.08 (0.0-0.2) 10^3/uL VBG Lactate 0.7 (<or=2.0) mmol/L Sodium 140 (136-145) mmol/L Potassium 3.7 (3.5-5.1) mmol/L Chloride 101 (98-107) mmol/L Carbon Dioxide 31.2 (21.0-32.0) mmol/L Anion Gap 7.8 (3-11) mmol/L BUN 11 (7-18) mg/dL Creatinine 0.8 (0.70-1.30) mg/dL Est GFR (CKD-EPI 2020) 122.10 (mL/min/1.73m2) Glucose 103 (74-106) mg/dL Calcium 9.1 (8.5-10.1) mg/dL Total Bilirubin 1.2 H (0.2-1.0) mg/dL AST 21 (15-37) U/L ALT 20 (16-63) U/L Alkaline Phosphatase 78 (46-116) U/L Total Protein 7.5 (6.4-8.2) g/dL Albumin 4.0 (3.4-5.0) g/dL 01/15/25 09:35 Blood Culture - Pending Blood 01/15/25 09:20 Blood Culture - Pending Blood Intake and Output - 24 Hour Total 01/15/25 08:43 thru 01/15/25 13:45 Intake Total 1460 Balance 1460 Weight 705.336 kg Intake: IV 1460 Other: Urine Appearance Clear Falls Risk Assessment History of Falls No History 01/15/25 13:45 Contributing Factors No Factors 01/15/25 13:45 Ambulatory Aids Independent 01/15/25 13:45 Tubes/Lines None 01/15/25 13:45 Gait Evaluation No gait disturbance 01/15/25 13:45 Cognition No cognitive impairment 01/15/25 13:45 Fall Total Score 0 01/15/25 13:45 Level of Risk Standard/Low Risk 01/15/25 13:45 Problems (Last Reviewed 11/08/20 @ 03:24 by Rinku Lan DO) Cellulitis of face (Acute) Tobacco use disorder (Acute) Speech impediment (Acute) Marijuana abuse (Acute) Alcoholism (Acute) v v v v v v v v v Sending and/or Receiving Nurses: Please use comment section below to note any information pertinent to the patient hand-off not included above. Information / Comments: Patient alert, oriented, left facial edema, accompanied of two police officers. Report received from: ED NURSE
[2025-01-15 16:18] LABS: Vancomycin, Random 13.3 ug/mL
[2025-01-15 20:42] VITALS: BP 124/72; PULSE 76; RESP 16; TEMP 37; O2SAT 97
[2025-01-15] MEDS: Acetaminophen 325 MG TAB 650 MG PO (21:26)
[2025-01-15 21:45] LABS: Vancomycin, Trough 5.0 ug/mL (10.0-20.0)
[2025-01-15] MEDS: Normal Saline Flush 10 ML SYR IVP (22:07)
[2025-01-15] MEDS: VANCOMYCIN/WATER (PEG) 1.25 GM/250 ML BAG IVPB (22:08)
[2025-01-16 00:17] VITALS: BP 105/66; PULSE 60; RESP 16; TEMP 36.7; O2SAT 96
[2025-01-16] MEDS: AMPICILLIN/SULBACTAM 3 GM in Normal Saline 100 ML IVPB ×4 (05:06→20:11)
[2025-01-16] MEDS: Ketorolac 15 MG/ML VIAL IVP (05:46)
[2025-01-16 06:03] LABS: Abs Immature Grans 0.13 10^3/uL (0.0-0.06); HCT 41.5 % (40.0-50.0); HGB 13.9 g/dL (13.5-17.5); Immature Grans % 0.7 %; MCH 29.3 pg (27.0-33.0); MCHC 33.5 % (32.0-36.0); MCV 88 fL (80-95); MPV 10.0 fL (8.0-11.0); Platelet Count 194 10^3/uL (130-400); RBC 4.74 10^6/uL (4.36-5.78); RDW 12.1 % (11.8-14.1); RDW-SD 39.3 fL; WBC 18.73 10^3/uL (4.4-10.8)
[2025-01-16 06:26] LABS: ALT 15 U/L (16-63); AST 16 U/L (15-37); Albumin 3.2 g/dL (3.4-5.0); Alkaline Phosphatase 65 U/L (46-116); Anion Gap 7.6 mmol/L (3-11); BUN 12 mg/dL (7-18); Bilirubin, Total 1.0 mg/dL (0.2-1.0); CO2 29.4 mmol/L (21.0-32.0); Calcium 8.7 mg/dL (8.5-10.1); Chloride 104 mmol/L (98-107); Estimated GFR 122.10 (mL/min/1.73m2); Glucose 110 mg/dL (74-106); Magnesium 1.7 mg/dL (1.8-2.4); Potassium 4.2 mmol/L (3.5-5.1); Sodium 141 mmol/L (136-145); Total Protein 6.3 g/dL (6.4-8.2)
[2025-01-16] MEDS: Enoxaparin 40 MG/0.4 ML SYR SC (08:26)
[2025-01-16] MEDS: Dexamethasone 10 MG/ML VIAL IVP (08:26)
[2025-01-16] MEDS: Docusate Sodium 100 MG CAP PO (08:27)
[2025-01-16] MEDS: Normal Saline Flush 10 ML SYR IVP ×2 (08:27→20:12)
[2025-01-16 08:33] VITALS: BP 115/66; PULSE 68; RESP 17; TEMP 36.5; O2SAT 99
--- NOTE | 2025-01-16 09:34 | W.PM.PROGNOT ---
Date of Service Date of service: 01/16/25 Time of Service: 09:34 Assessment and Plan Assessment and plan (1) Cellulitis of face: Status: Acute Assessment and plan: As per CT - early abscess formation with soft tissue infection On admission did not meet sepsis criteria Ongoing Unasyn and vancomycin IV methyprednisolone in the ED ongoing tapering of decadron dosing Continue PRN ketorolac and PRN APAP for pain Skin culture pending Blood culture no growth at 24 hours Trend CRP labs in AM (2) Tobacco use disorder: Status: Acute Assessment and plan: PRN NRT (3) Speech impediment: Status: Acute Assessment and plan: History of speech impediment no exacerbation (4) Marijuana abuse: Status: Acute Assessment and plan: Under correctional custody X2 weeks - was on fentanyl ( smoking not IV) prior - now on suboxone as per self-report- verification progress -with correctoional MAR requested on 01/15 still pending Pharmacy mentioned outpatient dosing - will resume 1 film - patient mentioned being work back up to his dosing in correction (5) Opioid dependence: Status: Acute Assessment and plan: As above (6) Alcoholism: Status: Acute Assessment and plan: History of drinking and as per point 4 (7) On deep vein thrombosis (DVT) prophylaxis: Status: Acute Assessment and plan: On lovenox Discussed with Dr. Krishna Subjective Subjective Patient reports: pain is less, tolerating liquids well, tolerating a regular diet, voiding w/o difficulty and bowel movement; denies diarrhea, blood in stool, nausea, vomiting, shortness of breath or fever Exam Narrative Exam Narrative: Alert and oriented X4, no acute distress, head is normocephallic, no adenopathy, no neck swelling , normal eye ROM , mallampati III, no mandibular restriction in ROM ,imrpoving left face swelling, redness- and erythema to left lip commisure no laryngeal wheezing, swallow intact, clear lungs, S1, S2, no murmur, abdomen is non-distended, soft, non-tender, no CVA tenderness Objective Last Vital Signs Temp 36.5 C 01/16/25 08:33 Pulse 68 01/16/25 08:33 Resp 17 01/16/25 08:33 BP 115/66 01/16/25 08:33 Pulse Ox 99 01/16/25 08:33 Laboratory Results - last 24 hr 01/15/25 01/15/25 01/15/25 09:20 15:51 21:15 WBC 11.45 H RBC 5.27 Hgb 15.3 Hct 45.8 MCV 87 MCH 29.0 MCHC 33.4 RDW 12.3 Plt Count 174 MPV 9.6 Immature Gran % 0.3 Neutrophils % 80.6 Lymphocytes % 11.3 Monocytes % 6.1 Eosinophils % 1.0 Basophils % 0.7 Nucleated RBC % 0.0 Absolute Neutrophils 9.23 H Absolute Lymphocytes 1.29 Absolute Monocytes 0.70 Absolute Eosinophils 0.11 Absolute Basophils 0.08 VBG Lactate 0.7 Sodium 140 Potassium 3.7 Chloride 101 Carbon Dioxide 31.2 Anion Gap 7.8 BUN 11 Creatinine 0.8 Est GFR (CKD-EPI 2020) 122.10 Glucose 103 Calcium 9.1 Magnesium Total Bilirubin 1.2 H AST 21 ALT 20 Alkaline Phosphatase 78 Total Protein 7.5 Albumin 4.0 Vancomycin Trough 5.0 L Random Vancomycin 13.3 01/16/25 05:50 WBC 18.73 H RBC 4.74 Hgb 13.9 Hct 41.5 MCV 88 MCH 29.3 MCHC 33.5 RDW 12.1 Plt Count 194 MPV 10.0 Immature Gran % 0.7 Neutrophils % 87.1 Lymphocytes % 6.9 Monocytes % 4.9 Eosinophils % 0.1 Basophils % 0.3 Nucleated RBC % 0.0 Absolute Neutrophils 16.31 H Absolute Lymphocytes 1.29 Absolute Monocytes 0.92 H Absolute Eosinophils 0.02 Absolute Basophils 0.06 VBG Lactate Sodium 141 Potassium 4.2 Chloride 104 Carbon Dioxide 29.4 Anion Gap 7.6 BUN 12 Creatinine 0.8 Est GFR (CKD-EPI 2020) 122.10 Glucose 110 H Calcium 8.7 Magnesium 1.7 L Total Bilirubin 1.0 AST 16 ALT 15 L Alkaline Phosphatase 65 Total Protein 6.3 L Albumin 3.2 L Vancomycin Trough Random Vancomycin PAWSS Have you Been Recently Intoxicated or Drunk Within the Last 30 days?: Yes Have you Ever Experienced Previous Episodes of Alcohol Withdrawal?: No Have you ever Experienced Withdrawal Seizures?: No Have you ever Experienced Delirium Tremens(DT)s?: No Have you ever undergone Alcohol Rehabilitation Treatment (i.e, inpt ot outpatient treatment programs)?: No Have you ever Experienced Blackouts?: No Have you ever Combined Alcohol with other Downers within the last 90 days?: Yes Have you ever Combined Alcohol with any other Substance of Abuse during the last 90 days?: No Positive Blood Alcohol level on Presentation? [PCS.BAL]: No Evidence of Increased Autonomic Activity (i.e. HR>120, tremor, sweating, agitation, nausea)?: No Result: 1 Time Spent with Patient Time Spent with Patient: >50 minutes Time was spent: preparing to see the patient(eg.review tests), obtaining and/or reviewing separately [facility] hiistory, ordering medications,tests, procedures, referring, communicating with other health manager intensive care unit, indepentently interpreting results, counseling the patient, care coordination and other
[2025-01-16] MEDS: VANCOMYCIN/WATER (PEG) 1.5 GM/300 ML BAG IVPB ×2 (10:02→21:37)
[2025-01-16] MEDS: Buprenorphine/Naloxone 12 mg/3 mg FILM 1 EACH SL (10:04)
--- NOTE | 2025-01-16 14:02 | PDOC.CMIN ---
Date of service: 01/27/25 Time of Service: 14:05 Care Management Initial Assmt Initial Assessment Reason for Hospitalization: Left face Cellulites, left facial abscess Functional Status/Living Situation Patient Presentation: Young presented to the emergency department yesterday morning for evaluation of left facial swelling, see documentation. Per report, the patient is likely developing an abscess. He is currently incarcerated and accompanied by a [facility] ([facility] officer. He is being treated with antibiotics and will undergo repeat imaging in 2?3 days if there is no clinical improvement. Following the completion of this course of care, he will return to [facility]. The patient is independent at baseline. This information was obtained through chart review and discussions with clinical staff. CM will continue to follow. Town of Residence: [facility] Resides with: Other ([facility]) Instrumental Activities of Daily Living (ADLs): Independent Medications Medication Management: No Issues/Barriers identified Advance Directives Advance Directives: Do you have an Advance Directive: N 04/08/15, 11:40 AD On File at [facility]: N 04/08/15, 11:40 Date Asked 01/15/25 01/15/25, 08:46 AD Date Reviewed COLST On File at [facility] No 12/24/24, 21:59 COLST Date Scanned Code Status Resuscitation Status Full Code Portal Pt does not currently have a portal and education provided: Yes Insurance Coverage/Financial Issues Insurance: [facility] - [id number] Care Team Visit Care Team Role Provider Type Melany Julio APRN MD [facility] STAFF PHYSICIAN Unknown Unknown Primary Care Provider STAFF PHYSICIAN Maicol Moe MD Emergency Provider [facility] STAFF PHYSICIAN Hemanth Krishna MD Admit Provider [facility] STAFF PHYSICIAN Attending Provider Discharge Potential Discharge Needs: PCP F/U Appt and Other (ENT) Anticipated Barriers to Discharge: None Identified Patient/Family Education Needs: Review discharge instructions, discuss Ask Me Three Transportation: Other (DOC transport) Plan: Anticipate Young will be discharged back to the [facility], once medically ready. It is recommended he follow up with facility providers, possibly ENT, and discharge plan of care. He will transported via DOC as coordinated by [facility]. CM will follow. Social Determinants of Health Screening Social Determinants of health last assessed in clinic: 01/16/25 Will the Patient Participate in the Screening?: Unable to obtain Do you worry about having a steady place to live?: choose not to answer Problems where you live: no known problems In the past 12 months, have you had to go without electric, gas, oil or water in your home?: choose not to answer 1. Within the past 12 months, we worried whether our food would run out before we got money to buy more.: Don't know/refused 2. Within the past 12 months, the food we bought just didn't last and we didn't have money to get more.: Don't know/refused Has lack of transportation kept you from medical appointments or from doing things needed for daily living?: choose not to answer Has anyone in your life made you feel unsafe or unsupported?: choose not to answer How often do you feel lonely or isolated from those around you?: Sometimes Do you speak a language other than Armenian at home?: Yes Does the patient want assistance with any of the above?: Yes Health Related Social Needs Health related social needs: material hardship(utilities) (Z59.12), feeling lonely/isolated (Z60.8) and education (Z55.6) Health related social needs details: drug abuse PFSH All Active Problems (Updated 01/15/25 @ 15:04 by Melany Julio APRN) On deep vein thrombosis (DVT) prophylaxis (Acute) Opioid dependence (Acute) Cellulitis of face (Acute) Encounter for medical assessment (Acute) Tobacco use disorder (Acute) Speech impediment (Acute) Marijuana abuse (Acute) Learning disability (Acute) Alcoholism (Acute) Acne vulgaris (Acute) Medical History (Updated 01/15/25 @ 15:04 by Melany Julio APRN) Speech impediment Tobacco use disorder Learning disability Family History Grandfather Essential hypertension Myocardial infarction Mother Substance abuse Tobacco use disorder Daily marijuana COPD (chronic obstructive pulmonary disease) Father Substance abuse EtOH Sister No problems noted. Sister No problems noted. Brother No problems noted. Social History Smoking/Tobacco Use Status: Current every day Smoking risk assessment performed?: Yes Alcohol Intake: current Alcohol Intake frequency: a few times a week Drug use: Daily Substance use type: marijuana and crack/cocaine Housing: other Do you feel safe at home: Yes Do you feel safe in your relationship?: Yes Readmission Within the Past 30 Days Yes or No: No
[2025-01-16 14:06] LABS: Lab Add On Test DONE
[2025-01-16 14:14] LABS: C-Reactive Protein 4.57 mg/dL (<or=0.5)
[2025-01-16 16:50] VITALS: BP 132/87; PULSE 62; RESP 16; TEMP 36.6; O2SAT 94
[2025-01-16 20:24] VITALS: BP 127/75; PULSE 62; RESP 16; TEMP 37; O2SAT 98
[2025-01-16] MEDS: Nicotine 21 MG/24 HR PATCH TD (21:36)
[2025-01-16] MEDS: Acetaminophen 325 MG TAB 650 MG PO (21:36)
[2025-01-16 22:39] VITALS: BP 112/57; PULSE 60; RESP 15; TEMP 36.6; O2SAT 97
[2025-01-17 03:19] VITALS: BP 118/94; PULSE 47; RESP 14; TEMP 36.8; O2SAT 99
[2025-01-17] MEDS: AMPICILLIN/SULBACTAM 3 GM in Normal Saline 100 ML IVPB ×2 (05:26→10:10)
[2025-01-17] MEDS: Acetaminophen 325 MG TAB 650 MG PO (05:35)
[2025-01-17 06:40] LABS: Abs Immature Grans 0.05 10^3/uL (0.0-0.06); HCT 41.0 % (40.0-50.0); HGB 13.4 g/dL (13.5-17.5); Immature Grans % 0.4 %; MCH 28.4 pg (27.0-33.0); MCHC 32.7 % (32.0-36.0); MCV 87 fL (80-95); MPV 10.3 fL (8.0-11.0); Platelet Count 205 10^3/uL (130-400); RBC 4.72 10^6/uL (4.36-5.78); RDW 12.5 % (11.8-14.1); RDW-SD 39.8 fL; WBC 13.19 10^3/uL (4.4-10.8)
[2025-01-17 07:05] LABS: ALT 15 U/L (16-63); AST 13 U/L (15-37); Albumin 3.2 g/dL (3.4-5.0); Alkaline Phosphatase 66 U/L (46-116); Anion Gap 5.2 mmol/L (3-11); BUN 14 mg/dL (7-18); Bilirubin, Total 0.5 mg/dL (0.2-1.0); CO2 32.8 mmol/L (21.0-32.0); Calcium 8.8 mg/dL (8.5-10.1); Chloride 104 mmol/L (98-107); Estimated GFR 127.12 (mL/min/1.73m2); Glucose 95 mg/dL (74-106); Potassium 3.9 mmol/L (3.5-5.1); Sodium 142 mmol/L (136-145); Total Protein 6.6 g/dL (6.4-8.2)
[2025-01-17 07:32] VITALS: BP 115/81; PULSE 52; RESP 18; TEMP 36.7; O2SAT 96
[2025-01-17] MEDS: Buprenorphine/Naloxone 12 mg/3 mg FILM 1 EACH SL (08:03)
[2025-01-17] MEDS: Normal Saline Flush 10 ML SYR IVP (08:04)
[2025-01-17] MEDS: Docusate Sodium 100 MG CAP PO (08:04)
[2025-01-17] MEDS: Dexamethasone 10 MG/ML VIAL 6 MG IVP (08:04)
[2025-01-17] MEDS: VANCOMYCIN/WATER (PEG) 1.5 GM/300 ML BAG IVPB (10:11)
--- NOTE | 2025-01-17 10:58 | CMDISCH_ITS ---
Date of service: 01/17/25 Time of Service: 11:03 LACE Index Scoring Tool Questions: Length of Stay (in days): 2 Was the patient admitted via the E.D.?: Yes E.D. Visits: 2 Answers: Total Score: 7 Risk of Readmission: Low Risk Care Management Discharge Plan Reason for Hospitalization: Facial cellulitis Discharge Plan: Young will be discharged back to [facility] today on oral antibiotics; CM verified [facility] antibiotic availability, the facility is able to accept Young back today. It is recommended he follow up with facility providers, possibly ENT, and discharge plan of care. He will transported via DOC as coordinated by DOC. Patient/Family Education Needs: review discharge instructions, activity, limitations, and plan of care. Discuss ask me three. SDOH Health Related Social Needs: Health related social needs material hardship lonely/i solated education Health related social needs details drug abuse Health related social needs details: drug abuse
[2025-01-17 11:07] VITALS: BP 105/63; PULSE 55; RESP 16; TEMP 36.5; O2SAT 96
--- NOTE | 2025-01-17 12:18 | DSE_ITS ---
Date of service: 01/17/25 Time of Service: 12:18 DS: Diagnosis Discharge Diagnosis (1) Cellulitis of face: Status: Acute (2) Tobacco use disorder: Status: Acute (3) Speech impediment: Status: Acute (4) Marijuana abuse: Status: Acute (5) Opioid dependence: Status: Acute (6) Alcoholism: Status: Acute Discharge Plan Disposition [facility] Disposition[facility] Condition: Improving Discharge Details Reason For Visit: Left Face Cellulitis, Left Facial Abscess Admit Date/Time: 01/15/25 13:12 Admit Provider: Hemanth Krishna Attending Provider: Hemanth Krishna Primary Care Provider: Unknown,Unknown Hospital Course Hospital Course: This is a 29-year-old male patient currently under custody at the local nursing home center brought to the emergency department for cellulitis facial. Workup per CT did show early abscess formation he was started on Unasyn and vancomycin he did not meet SIRS or sepsis criteria. His imaging was reviewed by ENT at [facility] who does not believe the abscesses are drainable at this time and recommends ongoing antibiotics. He was admitted to the medical surgical department for IV antibiotics. Overnight symptoms improved and he remained hemodynamically stable. He was afebrile. He is going to be discharged on cephalexin and Bactrim to complete a 10-day course he should return sooner for new or worsening symptoms Home Meds and New Rx's Prescriptions: New sulfamethoxazole-trimethoprim [Bactrim DS] 800-160 mg tablet 1 tab PO BID Qty: 20 0RF cephalexin 500 mg capsule 500 mg PO Q6H 10 Days Qty: 40 0RF Continued ibuprofen 600 mg tablet 600 mg PO QID PRN (Reason: pain) Qty: 20 0RF Discharge Instructions Instructions: Cellulitis (Skin Infection), Adult ED Stand Alone Forms: Nursing Discharge Form Referrals: Unknown,Unknown [Primary Care Provider, Unknown] Referral Note: primary care or infirmary follow up Activity:: Activity as Tolerated Equipment/Supplies:: No Equipment Needed Diet:: As Tolerated Discharge Orders Discharge Orders: Discharge Order (Routine); Ordered 01/17/25 Ordered By: Blank C[place] Discharge Data Discharge Date/Time-TO BE ENTERED AT DEPARTURE: 01/17/25 13:44 DS: Summary Time Spent with Patient providing and/or coordinating discharge services: Greater than 30 minutes Status at Discharge Functional status at discharge: independent ambulation Overall status at discharge: patient is progressing back to baseline Mental Status: mental status grossly normal Speech and Movement: speech and movement normal Mood: congruent mood Affect: normal affect Quality:SDOH Health Related Social Needs: Health related social needs material hardship lonely/i solated education Health related social needs details drug abuse Health related social needs details: drug abuse Exam Narrative Exam Narrative: White male stated age no acute distress head is atraumatic eyes nonicteric noninjected oral mucosas moist neck is supple full range of motion cardiovascular regular rate and rhythm skin is well-perfused neurologic is awake alert oriented no focal deficits psychiatric appropriate mood and affect left- sided facial cystic lesion no surrounding erythema dried over crust Psych Mental Status: mental status grossly normal Speech and Movement: speech and movement normal Mood: congruent mood Affect: normal affect DS: Data Vitals/I&O Vitals and I&O: Vital Signs Temperature 36.5 C 01/17/25 11:07 Temperature Source Temporal Artery Scan 01/17/25 11:07 Pulse 55 L 01/17/25 11:07 Respiratory Rate 16 01/17/25 11:07 Respiratory Effort Normal 01/15/25 13:45 Respiratory Depth Normal 01/15/25 13:45 Respiratory Pattern Normal 01/15/25 13:45 Blood Pressure 105/63 01/17/25 11:07 Blood Pressure Mean 77 01/17/25 11:07 Blood Pressure Position Sitting 01/15/25 08:47 Pulse Oximetry 96 01/17/25 11:07 Oxygen Delivery Method Room Air 01/17/25 11:07 Oxygen Flow Rate 0 01/17/25 11:07 Pain Level 2 01/17/25 11:07 Comment PT sleeping 01/16/25 03:24 Intake & Output 01/16/25 01/17/25 01/17/25 23:59 11:59 23:59 Intake Total 500 / 1100 700 / 1060 360 / 1060 Balance 500 / 1100 700 / 1060 360 / 1060 Intake: IV 500 / 1100 700 / 700 Oral 360 / 360 Other: Urine Color Yellow Comment goes w/ toilet w/ officer on the sight. per pt voided x2 Data Completed and Pending Labs on day of discharge: Labs from last 24 hours 01/17/25 01/16/25 01/16/25 06:16 Unknown 05:50 WBC 13.19 H RBC 4.72 Hgb 13.4 L Hct 41.0 MCV 87 MCH 28.4 MCHC 32.7 RDW 12.5 Plt Count 205 MPV 10.3 Immature Gran % 0.4 Neutrophils % 78.9 Lymphocytes % 15.6 Monocytes % 4.8 Eosinophils % 0.1 Basophils % 0.2 Nucleated RBC % 0.0 Absolute Neutrophils 10.41 H Absolute Lymphocytes 2.06 Absolute Monocytes 0.63 Absolute Eosinophils 0.01 Absolute Basophils 0.03 Sodium 142 Potassium 3.9 Chloride 104 Carbon Dioxide 32.8 H Anion Gap 5.2 BUN 14 Creatinine 0.7 Est GFR (CKD-EPI 2020) 127.12 Glucose 95 Calcium 8.8 Total Bilirubin 0.5 AST 13 L ALT 15 L Alkaline Phosphatase 66 C-Reactive Protein 4.57 H Total Protein 6.6 Albumin 3.2 L Add-On Test Request DONE Preliminary micro results at discharge 01/15/25 09:35 Blood Blood Culture - Preliminary NO GROWTH 48 HOURS 01/15/25 09:20 Blood Blood Culture - Preliminary NO GROWTH 48 HOURS 01/16/25 14:56 Face - Left Skin Culture - Preliminary Gram positive krupa, mixed PFSH All Active Problems (Updated 01/15/25 @ 15:04 by Melany Julio APRN) On deep vein thrombosis (DVT) prophylaxis (Acute) Opioid dependence (Acute) Cellulitis of face (Acute) Encounter for medical assessment (Acute) Tobacco use disorder (Acute) Speech impediment (Acute) Marijuana abuse (Acute) Learning disability (Acute) Alcoholism (Acute) Acne vulgaris (Acute) Medical History (Updated 01/15/25 @ 15:04 by Melany Julio APRN) Speech impediment Tobacco use disorder Learning disability Family History Grandfather Essential hypertension Myocardial infarction Mother Substance abuse Tobacco use disorder Daily marijuana COPD (chronic obstructive pulmonary disease) Father Substance abuse EtOH Sister No problems noted. Sister No problems noted. Brother No problems noted. Social History Smoking/Tobacco Use Status: Current every day Smoking risk assessment performed?: Yes Alcohol Intake: current Alcohol Intake frequency: a few times a week Drug use: Daily Substance use type: marijuana and crack/cocaine Housing: other Do you feel safe at home: Yes Do you feel safe in your relationship?: Yes Time Spent with Patient Time Spent with Patient: 45-69 minutes Time was spent: preparing to see the patient(eg.review tests), obtaining and/or reviewing separately otained hiistory, ordering medications,tests, procedures, indepentently interpreting results, counseling the patient and care coordination
== END 2025-01-17 13:44 ==
LOC: ER 12:39 → MS 13:43
PROVIDERS: Admitting Provider Hospitalist; Emergency Provider General Practice; Responsible Provider Nurse Practitioner Acute Care; Visit Provider Hospitalist
DX: L02.01 Cutaneous abscess of face (principal); L03.211 Cellulitis of face; F11.20 Opioid dependence, uncomplicated; F10.20 Alcohol dependence, uncomplicated; R47.89 Other speech disturbances; F14.90 Cocaine use, unspecified, uncomplicated; F81.9 Developmental disorder of scholastic skills, unspecified; F12.10 Cannabis abuse, uncomplicated; Z59.87 Material hardship due to limited financial resources, not elsewhere classified; R45.89 Other symptoms and signs involving emotional state; F17.210 Nicotine dependence, cigarettes, uncomplicated
CPT/HCPCS: 00123; 36415; 80053; 87040; 87077; 96365; 96366; 96367; 96368; 96372; 96375; 96376; 99285; J1650; 70487; 80202; 83605; 83735; 85025; 86140; 87070; 87186; 99223; 99233; 99239; G0378; J0131; J0295; J1100; J1885; J2919; J3373